=== PATIENT | male | born 2000 | race Caucasian/White ===

== ENCOUNTER 2019-01-25 22:45 | Emergency (ER) | payer OTHER ==
[~2019-01-25] VITALS: Ht 165.1 cm; Wt 67.6 kg
[~2019-01-25 22:45] MED LIST: DIPH50CA8 PO
[2019-01-25 22:59] VITALS: BP 132/90
--- NOTE | 2019-01-25 23:02 | NUR ---
TO LOBBY A/W BED WITH MOTHER
--- NOTE | 2019-01-26 00:09 | NUR ---
PATIENT LEFT WITHOUT BEING SEEN BY DR. ESCALANTE. NO FURTHER CARE PROVIDED FOR PATIENT.
== END 2019-01-26 00:09 | disposition left against medical advice (07) ==
LOC: MED 22:45
DX: R10.9 Unspecified abdominal pain (principal); R11.2 Nausea with vomiting, unspecified; R19.7 Diarrhea, unspecified; Z53.21 Procedure and treatment not carried out due to patient leaving prior to being seen by health care provider